=== PATIENT | male | born 1980 | race Hispanic/Latino ===

== ENCOUNTER 2020-05-21 01:00 | Emergency (ER) | payer OTHER | END 2020-05-21 01:16 | disposition home or self-care (01) | LOC: EDH 01:00 | DX: Z02.83 Encounter for blood-alcohol and blood-drug test (principal); Z72.0 Tobacco use ==

== ENCOUNTER 2020-07-13 04:56 | Emergency (ER) | payer OTHER | END 2020-07-13 05:22 | disposition home or self-care (01) | LOC: EDH 04:56 | DX: Z02.83 Encounter for blood-alcohol and blood-drug test (principal); Z72.0 Tobacco use ==